=== PATIENT | female | born 1990 | race Hispanic/Latino ===

== ENCOUNTER 2018-08-03 13:31 | Observation (INO) | payer OTHER ==
[~2018-08-03] VITALS: Ht 152.4 cm; Wt 83.5 kg
[2018-08-03 15:22] VITALS: BP 117/71
== END 2018-08-03 15:50 | disposition home or self-care (01) ==
LOC: UNDOADMOB 13:31 → ATP 13:31 → EDPENDDISTM 15:15 → UNDODISOB 15:50
PROVIDERS: ADMIT Obstetrics & Gynecology; ATTEND Obstetrics & Gynecology
DX: O26.893 Other specified pregnancy related conditions, third trimester (principal); R51 Headache; Z3A.38 38 weeks gestation of pregnancy
CPT/HCPCS: 59025; G0378 ×2

== ENCOUNTER 2018-08-05 15:13 | Observation (INO) | payer OTHER ==
[~2018-08-05] VITALS: Ht 152.4 cm; Wt 83.9 kg
== END 2018-08-05 16:57 | disposition still patient (30) ==
LOC: ATP 15:13
PROVIDERS: ADMIT Obstetrics & Gynecology; ATTEND Obstetrics & Gynecology
DX: O62.9 Abnormality of forces of labor, unspecified (principal); O42.913 Preterm premature rupture of membranes, unspecified as to length of time between rupture and onset of labor, third trimester; Z3A.38 38 weeks gestation of pregnancy
CPT/HCPCS: 59025; 84112; G0378 ×2

== ENCOUNTER 2018-08-05 16:57 | Inpatient (IN) | payer OTHER ==
[~2018-08-05] VITALS: Ht 152.4 cm; Wt 83.5 kg
[2018-08-05] MEDS ORDERED: ANCEF 2 GM/D5W 50ML IV SCH (17:00)
[2018-08-05 17:17] LABS: BASOPHIL % 0.1 % (0.0-0.2); EOSINOPHIL # 0.1 10^3/uL (0.0-0.2); EOSINOPHIL % 0.6 % (0.0-5.0); HEMOGLOBIN 7.8 g/dL (12.0-15.0); LYMPHOCYTES # 1.2 10^3/uL (1.0-4.8); LYMPHOCYTES % 15.6 % (24.0-44.0); MEAN CELL HGB 18.2 pg (26-34); MEAN CELL HGB CONCENTRATION 27.7 g/dL (33-37); MEAN CORP VOLUME 65.9 fL (78-100); MEAN PLATELET VOLUME 8.9 fL (7.8-11.0); MONOCYTES # 0.6 10^3/uL (0.3-0.8); MONOCYTES % 7.7 % (5.0-12.0); NEUTROPHILS % 75.7 % (41.0-85.0); PLATELET COUNT 328 10^3/uL (150-400); RED CELL DISTRIBUTION WIDTH 21.3 % (11.5-14.5)
[2018-08-05] MEDS ORDERED: ZOFRAN ONE (17:19)
[2018-08-05] MEDS ORDERED: DURAMORPH ONE (17:20)
[2018-08-05] MEDS ORDERED: MARCAINE SPINAL AMPUL IJ ONE (17:20)
[2018-08-05] MEDS ORDERED: VERSED ONE (17:20)
[2018-08-05] MEDS ORDERED: OXYTOCIN 30 UNIT/NS 500 ML 1,000 ML IV ONE (17:21)
[2018-08-05] MEDS ORDERED: EPHEDRINE SULFATE ONE (17:21)
[2018-08-05] MEDS: LACTATED RINGERS 1,000 ML IV SCH ×3 (17:30→19:18)
[2018-08-05] MEDS ORDERED: NS 100ML 100 ML IV ONE (17:38)
[2018-08-05] MEDS ORDERED: ANCEF ONE (17:39)
--- NOTE | 2018-08-05 18:01 | PCM.HP ---
OB-Chief Complaint and HPI Date/Diagnosis Date: Aug 05, 2018 Time: 17:50 Admit Dx: (1) Spontaneous rupture of amniotic membranes SNOMED: 327953034 (2) 38 weeks gestation of ICD Codes: Z3A.38 - 38 weeks gestation of SNOMED: 86566720 (3) Previous section ICD Codes: Z98.891 - History of uterine scar from previous surgery SNOMED: 085176173 (4) Group beta Strep positive ICD Codes: B95.1 - Streptococcus, group B, as the cause of diseases classified elsewhere SNOMED: 997838197, 7674006286052 (5) Anemia ICD Codes: D64.9 - Anemia, unspecified SNOMED: 715303940 (6) Insufficient care in third trimester ICD Codes: O09.33 - Supervision of with insufficient care, third trimester SNOMED: 04696681, 5416325419900 Chief Complaint/History(PI) Cheif Complaint 28 y/o presents to triage with complains of ROM @ 3pm. Noted to be rustam. Amnisure +, SVE 370/-3. : 6 Para: [id number] Reason for admission: active labor, rupture of membranes Indication for : other (previous c/s x 4) Other Reasons SROM, Labor Past Family/Social History Patient History: No Family History of: Alzheimer's disease Asthma Cerebrovascular disorder Chronic obstructive pulmonary disease Congestive heart failure Diabetes insipidus Diabetes mellitus Hypertension Parkinson's disease Unknown Blood Type: A+ Rubella: immune RPR/VDRL: Negative GBS Status: Positive HBsAG: Negative OB EXAM Physical Exam Vital Signs: Pulse Oximetry: 92, Weight: 184 Vital Signs Date Time Temp Pulse Resp B/P (MAP) Pulse Ox O2 Delivery O2 Flow Rate FiO2 08/03/18 15:22 92 Allergies Coded Allergies Type Severity Reaction Last Updated Verified No Known Allergies 06/30/14 No LABS Laboratory Tests Test 08/05/18 17:00 HIV-1 Antibody NON-REACTIVE (NONREACTIVE) HIV-2 Antibody NON-REACTIVE (NONREACTIVE) HEENT: NCAT Abdomen: Gravid, Non tender Extremities: Normal, Other (Full ROM) Cervical Dilatation: 3cm Effacement: 75% Station: -3 Membranes: Ruptured Amniotic Fluid: Clear Presentation: VTX, irregular CTX pattern, Cat 1 FHT OB Assessment and Plan Assessment/Plan Reason for admission: active labor, group B positive strep, rupture of membranes, other (previous c/s x 4) Assessment/Plan Summary: 28 y/o SROM @ 3pm. Amnisure +, SVE /-3.-Labor GBS + Hx of illicit drug use (THC/Meth) Late PNC Anemia Requesting BTL P/ Prep for c/s UDS SAMM ROSARIO DO Aug 05, 2018 18:01
[2018-08-05] MEDS ORDERED: REGLAN IV STA (19:15)
[2018-08-05] MEDS ORDERED: ERYTHROMYCIN ONE (19:38)
[2018-08-05] MEDS ORDERED: VITAMIN K ONE (19:38)
[2018-08-05 19:50] VITALS: BP 126/69
[2018-08-05 19:53] LABS: ANISOCYTOSIS 2+ (NEGATIVE); MICROCYTOSIS 2+ (NEGATIVE); OVALOCYTES 1+ (NEGATIVE)
[2018-08-05] MEDS ORDERED: NS 1000ML 2,000 ML IV ONE (20:04)
[2018-08-05 20:05] VITALS: BP 113/55
[2018-08-05 20:20] VITALS: BP 103/51
[2018-08-05 20:26] VITALS: BP 113/63
[2018-08-05 20:27] LABS: BILIRUBIN,URINE NEGATIVE (NEGATIVE); UROBILINOGEN,URINE NORMAL (NEGATIVE)
[2018-08-05 20:30] VITALS: BP 112/74
[2018-08-05 20:30] LABS: APPEARANCE,URINE CLEAR (CLEAR); UA COLOR YELLOW (YELLOW)
[2018-08-05] MEDS ORDERED: PHENERGAN IV PRN (20:30)
[2018-08-05] MEDS ORDERED: LANOLIN HYDROUS TP PRN (20:30)
[2018-08-05] MEDS ORDERED: REGLAN IV PRN (20:30)
[2018-08-05] MEDS ORDERED: MORPHINE SULFATE IV PRN (20:30)
[2018-08-05] MEDS ORDERED: BISAC-EVAC RC PRN (20:30)
[2018-08-05] MEDS ORDERED: NARCAN IV PRN (20:30)
[2018-08-05] MEDS ORDERED: LACTATED RINGERS 1,000 ML IV ONE (20:30)
[2018-08-05] MEDS ORDERED: BENADRYL IV PRN ×2 (20:30)
[2018-08-05] MEDS ORDERED: OXYTOCIN 30 UNIT/NS 500 ML 500 ML IV ONE (20:30)
[2018-08-05] MEDS ORDERED: NUBAIN IV PRN ×2 (20:30)
[2018-08-05] MEDS ORDERED: GENASYME PO PRN (20:30)
[2018-08-05] MEDS ORDERED: ZOFRAN IV PRN ×2 (20:30)
[2018-08-05] MEDS ORDERED: D5LR 1000ML 1,000 ML IV ONE (20:30)
[2018-08-05] MEDS ORDERED: NORCO 10MG PO PRN (20:30)
[2018-08-05] MEDS ORDERED: NORCO 5MG PO PRN (20:30)
[2018-08-05] MEDS ORDERED: NUBAIN ONE (21:37)
[2018-08-05] MEDS ORDERED: COLACE PO ONE (21:37)
[2018-08-05] MEDS: COLACE PO SCH (21:47)
[2018-08-05] MEDS ORDERED: TORADOL ONE (23:51)
[2018-08-05] MEDS: TORADOL IV SCH (23:57)
[2018-08-06] MEDS ORDERED: TORADOL IV SCH
--- NOTE | 2018-08-06 00:20 | OPH ---
DATE OF SURGERY: 08/05/2018 PREOPERATIVE DIAGNOSES: 38 weeks 4 days, spontaneous rupture of membranes, previous section x 4, GBS positive, late care, history of illicit drug use. POSTOPERATIVE DIAGNOSES: 38 weeks 4 days, spontaneous rupture of membranes, previous section x 4, GBS positive, late care, history of illicit drug use. PROCEDURE: Repeat low transverse section. SURGEON: Linda Dueñas DO OPHTHALMOLOGIST: Gianfranco Almeida. BLOOD LOSS: 400 mL. SPECIMENS: None. FINDINGS: Dense adhesions, uterine adhesion on the right lateral connected to posterior rectus, unable to visualize bilateral tubes and ovaries, very thin uterine wall prior to incision able to visualize infant through uterus.Viable female infant, Apgars 8 and 9, weight 9 pounds 6.3 ounces. PROCEDURE IN DETAIL: The patient was brought to the operating room where anesthesia was found to be adequate. She was then prepped and draped in a normal sterile fashion and placed in the supine position with leftward tilt. Time-out was performed. We proceeded with a Pfannenstiel skin incision that was made with a knife and carried through to the underlying layers of the fascia making the way through the dense adhesions. The fascia was transected in the midline with the Orellana scissors. Fascia was adhesed to the rectus muscles. Omkar clamps were used to elevate the inferior aspect of the fascial incision where dense adhesions were taken down. Same was done with the superior aspect of the fascial incision. The peritoneum was adhesed to the uterus. These adhesions were taken down with sharp and blunt dissection. The bladder blade was then placed. There was noted to be a very thin uterine wall and the right lateral area was adhesed, this was taken down just enough to make room for the uterine incision. The uterine incision was made with the knife. Clear fluid was noted and the incision was extended with the bandage scissors. The infant was delivered in a compound presentation with the left hand. A spontaneous cry was noted. Delayed cord clamped and cut blood was done and the was handed off to the waiting pediatric team. Cord blood was obtained and the placenta was manually removed. The placenta was noted to be calcified. The uterus was cleared of all clots and debris and the uterine incision was closed in a single layer closure with 0 Monocryl suture. Two [id number] sutures were done along the midline and right lateral portion of the incision for hemostasis. The uterine incision was reinspected. Hemostasis was noted and I attempted to visualize tubes and ovaries, but I was unable to do so secondary to adhesed tissue. I turned my attention to the fascia, which was reapproximated in the midline bilaterally with 0 Vicryl suture in a running nonlocked fashion, meeting in the midline. Subcutaneous tissue was closed with 2-0 chromic in an interrupted fashion and the skin was closed with 4-0 Monocryl. The patient tolerated the procedure well. She was taken to recovery room instable condition. Linda Dueñas DO DR: KATHY/beverley JOB# [id number] DON
[2018-08-06] MEDS ORDERED: D5LR 1000ML 1,000 ML ONE ×2 (00:44→08:49)
[2018-08-06] MEDS ORDERED: TORADOL ONE ×3 (05:24→17:58)
[2018-08-06] MEDS: TORADOL IV SCH ×3 (05:32→18:05)
[2018-08-06 05:33] LABS: BASOPHIL % 0.1 % (0.0-0.2); EOSINOPHIL # 0.1 10^3/uL (0.0-0.2); EOSINOPHIL % 0.8 % (0.0-5.0); HEMOGLOBIN 7.2 g/dL (12.0-15.0); LYMPHOCYTES # 1.3 10^3/uL (1.0-4.8); LYMPHOCYTES % 13.1 % (24.0-44.0); MEAN CELL HGB 18.3 pg (26-34); MEAN CELL HGB CONCENTRATION 27.5 g/dL (33-37); MEAN CORP VOLUME 66.5 fL (78-100); MEAN PLATELET VOLUME 9.2 fL (7.8-11.0); MONOCYTES # 0.7 10^3/uL (0.3-0.8); MONOCYTES % 7.1 % (5.0-12.0); NEUTROPHIL # 7.5 10^3/uL (1.8-7.7); NEUTROPHILS % 78.7 % (41.0-85.0); WHITE BLOOD CELL 9.5 10^3/uL (4.5-11.0)
[2018-08-06] MEDS ORDERED: COLACE PO ONE ×2 (08:32→19:53)
[2018-08-06] MEDS: COLACE PO SCH ×2 (08:39→19:57)
[2018-08-06] MEDS ORDERED: LACTATED RINGERS 1,000 ML ONE (08:53)
[2018-08-06] MEDS ORDERED: FERROUS SULFATE PO ONE (19:53)
[2018-08-06] MEDS ORDERED: NORCO 10MG PO ONE (19:54)
[2018-08-07] MEDS ORDERED: MOTRIN ONE ×3 (00:36→10:28)
[2018-08-07] MEDS ORDERED: NORCO 10MG PO ONE (00:37)
[2018-08-07] MEDS ORDERED: NORCO 5MG PO ONE ×3 (00:47→12:08)
[2018-08-07] MEDS: NORCO 5MG PO PRN ×3 (00:51→12:14)
[2018-08-07] MEDS: MOTRIN PO PRN ×2 (00:52→08:06)
[2018-08-07] MEDS ORDERED: FERROUS SULFATE PO SCH (09:00)
[2018-08-07] MEDS ORDERED: DEPO-PROVERA IM STA (10:19)
[2018-08-07] MEDS ORDERED: COLACE PO ONE ×2 (10:26→10:29)
[2018-08-07] MEDS ORDERED: DEPO-PROVERA IM ONE (10:27)
[2018-08-07] MEDS ORDERED: FERROUS SULFATE PO ONE (10:27)
--- NOTE | 2018-08-07 10:27 | PRM.PN ---
Progress Note Subjective Date: Aug 05, 2018 Time: 10:19 Physician Notes: Pt well today. Pain well controlled. Denies complaints. Ambulating and urinating without difficulty. Tolerating regular diet. States infant WBC are still elevated. Anxious to see her, would like to be d/c'd. Objective Review IO, Exams,& Results Vital Signs Date Time Temp Pulse Resp B/P (MAP) Pulse Ox O2 Delivery O2 Flow Rate FiO2 08/05/18 20:30 97.5 76 19 112/74 (87) 94 Room Air 97.5 Intake and Output 08/07/18 07:01 Intake Total 1000 ml Balance 1000 ml IV Total 1000 ml Laboratory Tests Test 08/05/18 17:00 08/06/18 05:13 White Blood Count 8.0 10^3/uL 9.5 10^3/uL Red Blood Count 4.28 10^6/uL 3.94 10^6/uL Hemoglobin 7.8 g/dL 7.2 g/dL Hematocrit 28.2 % 26.2 % Mean Corpuscular Volume 65.9 fL 66.5 fL Mean Corpuscular Hemoglobin 18.2 pg 18.3 pg Mean Corpuscular Hemoglobin Concent 27.7 g/dL 27.5 g/dL Red Cell Distribution Width 21.3 % 21.0 % Platelet Count 328 10^3/uL 306 10^3/uL Mean Platelet Volume 8.9 fL 9.2 fL Neutrophils (%) (Auto) 75.7 % 78.7 % Lymphocytes (%) (Auto) 15.6 % 13.1 % Monocytes (%) (Auto) 7.7 % 7.1 % Neutrophils # (Auto) 6.0 10^3/uL 7.5 10^3/uL Lymphocytes # (Auto) 1.2 10^3/uL 1.3 10^3/uL Monocytes # (Auto) 0.6 10^3/uL 0.7 10^3/uL Absolute Immature Granulocyte (auto 0.02 10^3 u/L 0.02 10^3 u/L Eosinophils % 0.6 % 0.8 % Basophils % 0.1 % 0.1 % Basophils # 0.0 10^3/uL 0.0 10^3/uL Polychromasia 1+ Hypochromasia 1+ Poikilocytosis 1+ Anisocytosis 2+ Microcytosis 2+ Tear Drop Cells 1+ Ovalocytes 1+ Stomatocytes 1+ Blood Morphology Comment ABNORMAL Eosinophil Count 0.1 10^3/uL 0.1 10^3/uL Percent Immature Gran (Cell Imm) 0.30 % 0.20 % HIV-1 Antibody NON-REACTIVE HIV-2 Antibody NON-REACTIVE Current Medications Medications (Trade) Dose Ordered Sig/Janki PRN Reason Start Time Stop Time Status Last Admin Acetaminophen/ Hydrocodone Bitart ([place] 5mg) 1 ea Q6H PRN PAIN 08/05/18 20:30 09/04/18 20:29 08/07/18 08:06 Bisacodyl (Bisac-Evac) 10 mg PRN PRN CONSTIPATION 08/05/18 20:30 09/04/18 20:29 Docusate Sodium (Colace) 100 mg BID 08/05/18 21:00 09/04/18 20:59 08/06/18 19:57 Ferrous Sulfate (Ferrous Sulfate) 325 mg DAILY 08/07/18 09:00 09/06/18 08:59 Ibuprofen (Motrin) 800 mg Q6H PRN PAIN 08/05/18 20:30 09/04/18 20:29 08/07/18 08:06 Lanolin (Lanolin Hydrous) 1 gm PRN PRN CHAPPED NIPPLES 08/05/18 20:30 09/04/18 20:29 Morphine Sulfate (Morphine Sulfate) 4 mg Q4H PRN PAIN 08/05/18 20:30 09/04/18 20:29 Nalbuphine HCl (Nubain) 5 mg Q4 PRN ITCHING 08/05/18 20:30 09/04/18 20:29 08/05/18 21:47 Ondansetron HCl (Zofran) 4 mg Q4H PRN NAUSEA / VOMITING 08/05/18 20:30 09/04/18 20:29 Promethazine HCl (Phenergan) 12.5 mg Q6H PRN NAUSEA / VOMITING 08/05/18 20:30 09/04/18 20:29 Simethicone (Genasyme) 80 mg Q6H PRN GAS 08/05/18 20:30 09/04/18 20:29 Aurea - SAMM ROSARIO DO Npo-Dietary Req Nothing By Mo. (08/06/18 Breakfast) Abd/Pubic Clipper Prep For Cs (08/05/18 17:06) Place Haile Catheter (08/05/18 17:06) Surgical Consent For (08/05/18 17:06) Vital Signs Routine (08/05/18 17:06) Pre-Op Per Anesthesia (08/05/18 17:06) Ringer's Solution,Lactated (Lactated Rin (08/05/18 17:30) Type And Screen (08/05/18 17:06) Hbsag (Surf Antigen) (08/05/18 17:06) Rbc-Active Bleeding (08/05/18 17:06) Npo Except Ice Chips/Popsicles (08/05/18 17:06) Bisacodyl (Bisac-Evac) (08/05/18 20:30) Lanolin,Anhydrous (Lanolin Hydrous) (08/05/18 20:30) Morphine Sulfate (Morphine Sulfate) (08/05/18 20:30) Promethazine Hcl (Phenergan) (08/05/18 20:30) Simethicone (Genasyme) (08/05/18 20:30) Abdominal Binder (08/05/18 20:04) Bedrest With Po Ambulat/Assist (08/05/18 20:04) Dc Haile (08/05/18 20:04) Anesthesia For Pain Control (08/05/18 20:04) Strick I&O Q4hr (08/05/18 20:04) Scd's While In Bed (08/05/18 20:04) Po Surgical Vitals (08/05/18 20:04) Regular Diet (08/06/18 Breakfast) Admit Orders (08/05/18 20:04) Ibuprofen (Motrin) (08/05/18 20:30) Hydrocodone/Acetaminophen ([place] 5mg) (08/05/18 20:30) Docusate Sodium (Colace) (08/05/18 21:00) Ondansetron Hcl (Zofran) (08/05/18 20:30) Nalbuphine Hcl (Nubain) (08/05/18 20:30) Ferrous Sulfate (Ferrous Sulfate) (08/07/18 09:00) Social Service Consult (08/07/18 08:07) Medroxyprogesterone Acetate (Depo-Manufacturing Plant Technician (08/07/18 10:19) Social Service Consult (08/07/18 10:19) Abdomen: Soft, Other (appropriate tendernsss. Dressing intact. areas of bleeding marked. Will remove after shower. ) Skin: No breakdown, Other (Ex-Full ROM, NT, trace edema) Complications/Observations anemia Assessment & Plan: Assessment A/ 28 y/o s/p RLTCS Prior c/s x 4 SROM Anemia Hx of substance abuse-testing negative insufficient care GBS + infant transferred secondary to sepsis Requesting BTL Plan P/ Depo prior to d/c home Plan for BTL (form signed 07/31/18) Continue iron. Social work consult. SAMM ROSARIO DO Aug 07, 2018 10:27
[2018-08-07] MEDS ORDERED: TUCKS ONE (10:28)
[2018-08-07] MEDS ORDERED: DERMOPLAST SPRAY TP ONE (10:28)
--- NOTE | 2018-08-07 10:31 | PRM.DC ---
OB Discharge Summary Discharge Summary Date of Arrival on Unit: Aug 05, 2018 Reason for Visit: SROM, Labor Discharge Date: Aug 07, 2018 Patient History: No Family History of: Alzheimer's disease Asthma Cerebrovascular disorder Chronic obstructive pulmonary disease Congestive heart failure Diabetes insipidus Diabetes mellitus Hypertension Parkinson's disease Unknown Procedure(s) & Date(s) RLTCS 08/05/18 Vitals,Diet,Meds & Activity Regular diet, activity as tolerated. Limit lifting to 10lbs. Pelvic rest 6 weeks. Complications: Other (Anemia) Medications: Motrin, Fe, Other (T#3) Discharge Diagnosis: S/P Discharge Disposition: Stable Assessment & Plan A/ 28 y/o s/p RLTCS Prior c/s x 4 SROM Anemia Hx of substance abuse-testing negative insufficient care GBS + infant transferred secondary to sepsis Requesting BTL P/ 1 week incision check Depo prior to d/c home Plan for BTL (form signed 07/31/18) Continue iron. Social work consult. SAMM ROSARIO DO Aug 07, 2018 10:31
[2018-08-07] MEDS: COLACE PO SCH (11:57)
--- NOTE | 2018-08-07 12:07 | PRM.PN ---
cc: Assessment/Plan Assessment/Plan POD #1 Pt siting up in chair eating lunch. Pain well controlled with Toradol. Tolerating regular diet. Ambulating and urinating without difficulty. Infant transferred for sepsis overnight. abd-soft, appropriate tenderness, Incision with dressing. bleeding marked ex- full ROM, NT A/ POD # 1 s/p RLTCS GBS + transferred secondary to sepsis Anemia P/ Continue PP management Iron Increase ambulation Plan for BTL week 4-6, discussed Depo prior to d/c Hx of c/s x 5 discussed surgery in detail with pt. Extremely thin uterine wall noted. Able to see through prior to incision. Pt planning BTL. Discussed future pregnancies may be complicated with rupture secondary to uterine stress. Questions answered. SAMM ROSARIO DO Aug 06, 2018 13:32 <<<Electronically signed by SAMM ROSARIO DO>08/06/18 1392 >> [facility]
[2018-08-07] MEDS ORDERED: ZOLOFT PO STA (13:58)
[2018-08-07 15:06] VITALS: BP 124/81
--- NOTE | 2018-08-08 14:52 | NUR ---
SOCIAL SERVICE CONSULT: SS RECEIVED SS CONSULT DUE TO PT'S DRUG HISTORY, AND HIGH SCORE ON DEPRESSION SCALE. PT LIVES HOME ALONE. SW VISITED WITH PT ON 08/07/18 AND PT STATED HER MOM HELPS HER WITH HER 4 KIDS AND CURRENTLY HAS THEM WHILE SHE IS IN THE HOSPITAL. PT STATED SHE WAS IN AN ABUSIVE SITUATION BUT IS CURRENTLY IN A BETTER PLACE. PT REPORTS BEING ANXIOUS AND WORRIED BUT DENIED SUICIDAL OR HOMICIDAL IDEATIONS. PT STATED SHE WORKS AT [employer] AND HAS A GREAT SUPPORT SYSTEM THROUGH HER FRIENDS. THERE HAS BEEN INCONSISTENCIES WITH PT'S STORY AND THE FRIENDS PT HAD COME AND SEE HER APPEARED TO HAVE AMS. SW FOLLOWED UP WITH [facility] TODAY AND VISITED WITH CHARGE NURSE VISHAL WHOM STATED PT HAD BEEN VERY OVER THE TOP AND [facility] AND HAD STATED "SHE WAS GOING [facility] BECAUSE WE BROKE HER BABY" PT SEEMED UNDER THE INFLUENCE WHILE AT THERE FACILITY PER REPORT. PT WHILE IN [facility] HAD TOLD OTHER PEOPLE SHE DID NOT HAVE CUSTODY OF HER OTHER CHILDREN HER MOTHER DID. DUE TO MULTIPLE CONCERNS A CPS REPORT WAS MADE SO THEY COULD INVESTIGATE AND INSURE BABY'S SAFETY WITH BRENDAN WORKER ID [id number], REFERENCE NUMBER [id number]. NO FURTHER SW NEEDS NOTED OR IDENTIFIED AT THIS TIME. S
== END 2018-08-07 14:45 | disposition home or self-care (01) | DRG 540 ==
LOC: LND 16:57
PROVIDERS: ADMIT Obstetrics & Gynecology; ATTEND Obstetrics & Gynecology
PROC: 0UN90ZZ Release Uterus, Open Approach (ICD-10-PCS; 2018-08-05)
PROC: 10D00Z1 Extraction of Products of Conception, Low, Open Approach (ICD-10-PCS; principal; 2018-08-05 18:07)
DX: O34.211 Maternal care for low transverse scar from previous cesarean delivery (principal); D64.9 Anemia, unspecified; O90.81 Anemia of the puerperium; O32.6XX0 Maternal care for compound presentation, not applicable or unspecified; Z37.0 Single live birth; O99.824 Streptococcus B carrier state complicating childbirth; Z3A.38 38 weeks gestation of pregnancy
CPT/HCPCS: 36415; 59025; 76825; 80307; 81002; 84112; 85025; 86318; 86885; 86900; 86901; 86921; A4338; G0378; J0690; J1050; J1885; J2250; J2300; J2405; J3490; J7042; J7050; J7120; J2274; J3430

== ENCOUNTER → 2018-09-21 | Day surgery (SDC) | payer OTHER ==
[2018-09-06 12:21] LABS: BASOPHIL % 0.4 % (0.0-0.2); EOSINOPHIL # 0.2 10^3/uL (0.0-0.2); EOSINOPHIL % 3.2 % (0.0-5.0); HEMOGLOBIN 9.3 g/dL (12.0-15.0); LYMPHOCYTES # 1.5 10^3/uL (1.0-4.8); LYMPHOCYTES % 26.8 % (24.0-44.0); MEAN CELL HGB 18.9 pg (26-34); MEAN CELL HGB CONCENTRATION 27.8 g/dL (33-37); MEAN CORP VOLUME 67.7 fL (78-100); MEAN PLATELET VOLUME 9.4 fL (7.8-11.0); MONOCYTES # 0.5 10^3/uL (0.3-0.8); MONOCYTES % 7.9 % (5.0-12.0); NEUTROPHIL # 3.5 10^3/uL (1.8-7.7); NEUTROPHILS % 61.5 % (41.0-85.0); PLATELET COUNT 414 10^3/uL (150-400); RED CELL DISTRIBUTION WIDTH 19.7 % (11.5-14.5); WHITE BLOOD CELL 5.7 10^3/uL (4.5-11.0)
[2018-09-06 14:48] LABS: ANISOCYTOSIS 1+ (NEGATIVE); MICROCYTOSIS 1+ (NEGATIVE)
[~2018-09-21] VITALS: Ht 157.5 cm; Wt 78.0 kg
[2018-09-21] VITALS (8 sets, daily range): BP systolic 112–154; BP diastolic 43–97
[~2018-09-21] MED LIST: ALPR1TAB2 PO; BENADRYL IV PRN; DECADRON ONE; DEMEROL IV PRN; DILAUDID IV PRN; DILAUDID ONE; DIPRIVAN IV ONE; LACTATED RINGERS 1,000 ML IV SCH; LACTATED RINGERS 1,000 ML ONE; LACTATED RINGERS 1,000 ML SCH; LIDOCAINE 2% VIAL ONE; METHYLENE BLUE ONE; NEOSTIGMINE ONE; PARO20TA4 PO; PHENERGAN IV PRN; QUELICIN ONE; SENSORCAINE-MPF 0.25% VIAL ONE; SODIUM CHLORIDE IR ONE; SODIUM CHLORIDE IRR BAG 1,000 ML ONE; SUBLIMAZE IV PRN; SUBLIMAZE ONE; TORADOL ONE; VERSED ONE; ZEMURON IV ONE; ZOFRAN ONE
--- NOTE | 2018-09-21 19:41 | OPH ---
DATE OF SURGERY: 09/21/2018 PREOPERATIVE DIAGNOSIS: Request for permanent sterilization. POSTOPERATIVE DIAGNOSIS: Request for permanent sterilization. PROCEDURE: Laparoscopic bilateral tubal ligation with Filshie clips and chromotubation. SURGEON: Linda Dueñas DO. HAND SLITTER: Audi Ro MD. COMPLICATIONS: None. FINDINGS: The uterus sounded to 12 cm. Left abdominal wall mass palpated on exam during exam prior to procedure, suspected fibroid uterus and suspected mass noted to be uterine wall adhesion attached to anterior abdominal wall cavity, multiple pelvic adhesions, uterus slightly mobile, difficulty in visualizing bilateral tubes and ovaries. ESTIMATED BLOOD LOSS: 15 mL. DESCRIPTION OF PROCEDURE: The patient was brought to the operating room where anesthesia was found to be adequate. She was then prepped and draped in normal sterile fashion and placed in supine lithotomy position. Timeout was performed. I proceeded to place a weighted speculum in the vaginal vault. The anterior lip of the cervix was grasped with a single tooth tenaculum and the uterus was sounded to 12 cm and a bimanual exam was performed. The uterus was slightly mobile, enlarged and felt to palpate an anterior uterine fibroid with a firm mass palpated in the left abdominal wall. Next, the HUMI uterine manipulator was placed into the cervical os. The balloon was insufflated. The single tooth tenaculum and weighted speculum were removed from the vaginal vault and then we proceeded to the abdominal portion of the procedure. The abdomen was palpated. As noted, the uterus was enlarged. The subumbilical uterine incision was made after infiltrating with 0.25% bupivacaine local anesthetic. A 5 mm trocar was placed in the abdominal cavity under direct visualization and pneumoperitoneum was obtained first with low flow and then high flow. The survey of the abdomen showed dense pelvic adhesions. A large thick area was noted at the anterior uterus that was attached to the anterior abdominal wall, which coincided with what I palpated externally. Omentum was adhesed to the abdominal wall along with multiple uterine adhesions along the abdominal wall and pelvic sidewall. Great care was taken as I began to survey and take pictures of the abdominal cavity. I was unable to get good visualization of the right and left quadrants due to the position of the camera and adhesions. I traversed down to the right pelvic side wall through adhesions with the camera and was able to visualize the right tube, but I was unable to see the right ovary. Then I attempted to look at the left pelvic sidewall and I was unable to visualize the tube and ovary at that time, but I did note an area that was translucent, which was thought to be bowel versus an ovarian cyst. Again, survey of the abdomen was complete and I called in Dr. Audi Ro for assistance with the case. Once Dr. Ro entered into the case, we surveyed the abdomen together and we decided to place a right upper quadrant incision to better visualize the adhesions. Therefore, the upper left quadrant incision was made with the knife after the area was infiltrated with local anesthetic. A #5 trocar was placed under direct visualization and we were able to see adhesions at the site of the subumbilical incision. Therefore, the camera was moved to this area and the probe and instruments were placed through this umbilical incision. With the probe, we were able to visualize the left fallopian tube. But it was the midline of the tube, approximately 2-3 cm was adhesed to the abdominal wall cavity and we were able to visualize the ovary and fimbriated end. Therefore, the previous area that I took note of was noted to be the bowel and the cul-de-sac. We then looked at the right adnexa and we were able to see the ovary and the fallopian tube and visualize the adhesed fallopian tube to the pelvic sidewall and uterus as well. We decided to attempt the Filshie clips on the tubal segments that we were able to visualize, therefore, the Filshie clip device was loaded and attempted to place it through the 5 subumbilical port. This proved to be difficult as it did not accommodate the Filshie device. Therefore, we removed the #5 trocar and replaced it with a #8. It was placed under direct visualization. This gave us adequate space to place the Filshie device. Dr. Ro placed the Filshie clip on the left fallopian tube and the freed portion and pictures were taken. We then reloaded and proceeded to the right tube. Again, we followed the fimbriated ends to an area that was not adhesed and the second Filshie clip was placed. Since the adhesions were prevalent, we wanted to make sure that tubal occlusion was obtained; therefore, we thought chromotubation was most appropriate at this time. Therefore, methylene blue was mixed with normal saline, 20 mL were placed into the HUMI. We visualized the left, then the right fallopian tube and no spillage of dye was noted bilaterally; therefore tubal occlusion was confirmed. I was able to visualize the upper right and left quadrants with the new camera position, so pictures were obtained and no anomalies were noted. Therefore, the procedure was complete. The adhesions noted could potentially be from endometriosis. They seemed to be quite thick and vascular. No powder goldman were noted on the sidewalls and anterior cavity. I was unable to visualize the cul-de-sac as it was adhesed and the uterus was large and not very mobile. The pneumoperitoneum was released, instruments were removed under direct visualization. The subumbilical incision fascia was closed with 0 Vicryl suture and the skin incisions were closed with 2-0 Monocryl. Band-Aids were placed on the incision sites. I turned my attention to the vagina. The weighted speculum was placed in the vaginal vault. The HUMI was released. The methylene blue had stained the vagina. Some bleeding was noted. I then visualized the anterior lip of the cervix, which was bleeding at the previous site of the single tooth tenaculum. This was cauterized with the silver nitrate and hemostasis was noted, but there was bleeding coming from the cervix as the patient is . All instruments were removed from the vaginal vault. All sponge, lap and needle counts were correct. The patient tolerated the procedure well. She was taken to the recovery room in stable condition. Linda Dueñas DO DR: KATHY/beverley JOB# [id number]
== END | disposition home or self-care (01) | DRG 761 ==
LOC: SDC 06:30
PROVIDERS: ATTEND Obstetrics & Gynecology
DX: Z30.2 Encounter for sterilization (principal); D25.9 Leiomyoma of uterus, unspecified; F34.1 Dysthymic disorder; F41.0 Panic disorder [episodic paroxysmal anxiety]; Z72.89 Other problems related to lifestyle; Z79.899 Other long term (current) drug therapy; Z87.440 Personal history of urinary (tract) infections; Z98.890 Other specified postprocedural states
CPT/HCPCS: 36415; 58350; 58671; 81025; 84703; 85025; A4217 ×3; J0330 ×2; J1100 ×2; J1170 ×2; J1885 ×2; J2001 ×2; J2250 ×3; J2405 ×2; J2710 ×2; J3010 ×2; J3490 ×6; J7120 ×2